=== PATIENT | female | born 1965 | race Caucasian/White ===

== ENCOUNTER 2017-10-21 09:10 | Day surgery (SDC) | payer OTHER | END 2017-10-21 14:40 | disposition home or self-care (01) | LOC: AMB-ENDOS 09:10 | DX: D12.3 Benign neoplasm of transverse colon (principal); K64.2 Third degree hemorrhoids ==

== ENCOUNTER 2024-10-17 06:29 | Day surgery (SDC) | payer OTHER ==
[2024-10-17] MEDS ORDERED: DIPHENHYDRAMINE HCL 50 MG/ML VIAL 1ML IV ONE (10:15)
[2024-10-17] MEDS ORDERED: MIDAZOLAM HCL 2 MG/2 ML VIAL IV ONE (10:15)
[2024-10-17] MEDS ORDERED: fentaNYL CITRATE 50 MCG/ML AMPUL IV PUSH ONE (10:15)
== END 2024-10-17 11:35 | disposition home or self-care (01) ==
LOC: AMB-ENDOS 06:29
PROVIDERS: ATTEND Colon & Rectal Surgery
DX: R19.5 Other fecal abnormalities (principal); K57.30 Diverticulosis of large intestine without perforation or abscess without bleeding; K58.0 Irritable bowel syndrome with diarrhea; K57.32 Diverticulitis of large intestine without perforation or abscess without bleeding